=== PATIENT | male | born 1990 | race Caucasian/White ===

== ENCOUNTER 2020-08-06 13:24 | Emergency (ER) | payer SELFPAY ==
[2020-08-06 13:27] VITALS: BP 145/88; PULSE 112; RESP 18; TEMP 36.6; O2SAT 98
--- NOTE | 2020-08-06 13:30 | ED.EAR ---
HPI - Ear Problem General Chief complaint: Ear Stated complaint: bee in ear Time Seen by Provider: 08/06/20 13:29 Source: patient Mode of arrival: ambulatory Limitations: no limitations History of Present Illness HPI Narrative: Patient is a 29-year-old male complaining of a bee in his left ear. Patient states that B fluid in his left ear, now having left ear pain and severe discomfort. Denies any other complaints. Review of Systems Review of Systems: All systems reviewed & are unremarkable except as noted in HPI and below PMFSH Social History Social History Gender identity (if verbalized by the patient): Male Comments Past medical history: None Family history noncontributory Social history: Smoker, no EtOH or drug use Exam Const: General: no acute distress and alert Orientation/consciousness: patient oriented x3 HENMT: Other: Insect in the left ear Course Vital Signs Vital signs: Vital Signs Temperature 36.6 C 08/06/20 13:27 Pulse Rate 112 H 08/06/20 13:27 Respiratory Rate 18 08/06/20 13:27 Blood Pressure 145/88 H 08/06/20 13:27 Pulse Oximetry 98 08/06/20 13:27 Temperature 36.6 C 08/06/20 13:27 Pulse Rate 112 H 08/06/20 13:27 Respiratory Rate 18 08/06/20 13:27 Blood Pressure 145/88 H 08/06/20 13:27 Pulse Oximetry 98 08/06/20 13:27 Procedures Foreign Body Removal Foreign Body #1: Foreign Body Removal Date: 08/06/20 Foreign Body Removal Time: 13:40 Time Out Performed: yes Site: left Description of foreign body: insect Sedation/Analgesia: none Technique: removal with forceps Confirmed by:: direct visualization Complications: none Post-procedure exam: awake, alert Medical Decision Making Vital Signs Vital Signs: Vital Signs Temperature 36.6 C 08/06/20 13:27 Pulse Rate 112 H 08/06/20 13:27 Respiratory Rate 18 08/06/20 13:27 Blood Pressure 145/88 H 08/06/20 13:27 Pulse Oximetry 98 08/06/20 13:27 Temperature 36.6 C 08/06/20 13:27 Pulse Rate 112 H 08/06/20 13:27 Respiratory Rate 18 08/06/20 13:27 Blood Pressure 145/88 H 08/06/20 13:27 Pulse Oximetry 98 08/06/20 13:27 Discharge Plan Discharge Clinical Impression: Foreign body in left ear, initial encounter Patient Disposition: Home, Self-Care Condition: Improved Instructions: Ear Foreign Body (ED) Follow-up/Referrals: PHYSICIAN,FINISHING TUNNEL OPERATOR [Primary Care Provider] - Time of Disposition: 13:42
== END 2020-08-06 14:28 | disposition home or self-care (01) ==
PROVIDERS: Emergency Provider Emergency Medicine
DX: T16.2XXA Foreign body in left ear, initial encounter (principal)
CPT/HCPCS: 69200; 99282